=== PATIENT | female | born 1970 | race Caucasian/White ===

== ENCOUNTER 2020-07-11 10:53 | Outpatient (CLI) | payer OTHER ==
--- NOTE | 2020-07-11 11:23 | RAD ---
LUMBAR SPINE 2 VIEWS: HISTORY: Low back pain. FINDINGS: Grade I anterolisthesis on L4 and L5 with some generalized facet arthrosis. Calcific focus possibly representing a right renal calculus. No significant malalignment. Minimal vertical height loss of T 11. IMPRESSION: Minimal vertical height loss of T11. Grade I anterolisthesis of L4 and L5. Possible right renal ruben culus. POS: [facility]
== END 2020-07-11 10:54 | disposition home or self-care (01) ==
LOC: BICRAD 10:53
PROVIDERS: ATTEND Physician Assistant
DX: M54.5 Low back pain (principal); M43.16 Spondylolisthesis, lumbar region
CPT/HCPCS: 72100

== ENCOUNTER 2020-07-27 09:02 | Outpatient (CLI) | payer OTHER ==
--- NOTE | 2020-07-27 11:23 | MRI ---
MRI OF THE LUMBAR SPINE WITHOUT CONTRAST: Date: 07/27/2020 COMPARISON: None. HISTORY: Chronic low back pain. TECHNIQUE: Multiplanar, multisequence MR imaging of the lumbar spine obtained without contrast. FINDINGS: The sagittal STIR imaging demonstrates no focal area of osseous marrow edema. On the basis of five elsie mbar-type vertebral bodies, the conus medullaris terminates at the T12-L1 level. T11-12: There is disc space narrowing and partial disc desiccation with anterior osteophyte formatio n. No associated central canal or neural foraminal stenosis. T12-L1: Mild bilateral facet hypertrophy. Intervertebral disc height and signal intensity within nor mal limits with no central canal or neural foraminal stenosis. L1-2: Mild bilateral facet hypertrophy with no significant central canal or neural foraminal stenosi s. L2-3: Intervertebral disc height and signal intensity within normal limits with no significant centr al canal or neural foraminal stenosis. L3-4: Bilateral facet hypertrophy. No significant central canal or neural foraminal stenosis. Interv ertebral disc height and signal intensity within normal limits. L4-5: There is disc space narrowing and disc desiccation. There is mild anterolisthesis measuring in the 4.0 mm range. There is prominent bilateral facet hypertrophy. Fluid is seen within the left face t joint. No significant central canal stenosis is noted. There is mild left-sided neural foraminal st enosis. L5-S1: Mild bilateral facet hypertrophy. Intervertebral disc height and signal intensity grossly unr emarkable with no significant central canal or neural foraminal stenosis. There is a small T2 hyperintense lesion within the left hemipelvis suggesting a small left ovarian cy st measuring in the 2.1 cm range. Follow-up pelvic ultrasound may be beneficial for full assessment. Imaged retroperitoneal structures demonstrate no acute findings. There is an incidentally noted 6.0 mm T1 and T2 hypointense focus posterior to the psoas muscle on th e left at the axial level of the L5 vertebral body within the adjacent fat. IMPRESSION: 1. Lumbar spine degenerative change as detailed above, most prominently involving the facet joints b ilaterally at the L4-5 level. 2. Findings suggesting a 2.1 cm cystic lesion within the left ovary. Pelvic ultrasound may be benefi cial for full characterization. CODE T. POS: [facility]
== END 2020-07-27 09:03 | disposition home or self-care (01) ==
LOC: BICMRI 09:02
PROVIDERS: ATTEND Physician Assistant
DX: M43.10 Spondylolisthesis, site unspecified (principal); M54.5 Low back pain; M47.816 Spondylosis without myelopathy or radiculopathy, lumbar region
CPT/HCPCS: 72148

== ENCOUNTER 2020-09-13 09:03 | Outpatient (CLI) | payer OTHER ==
--- NOTE | 2020-09-13 10:04 | ULT ---
Pelvic sonogram transabdominal imaging with duplex evaluation HISTORY: Ovarian cyst. Abnormal MRI. FINDINGS: Urinary bladder is unremarkable. Uterus is surgically absent. No free fluid in the pelvis. Right ovary is 2.4 cm length. Normal appearance with good color and spectral Doppler flow. Left ovary measures up to 4.5 cm. Cystic lesion, correlating with MRI finding, has a appearance of a dominant follicle measuring up to 2.3 cm x 1.5 cm greatest diameters. No solid component. Good color and spectral Doppler flow associated with the ovary. IMPRESSION : Dominant follicle left ovary 2.3 cm. No solid mass or otherwise aggressive process evident.
== END 2020-09-13 09:04 | disposition home or self-care (01) ==
LOC: BICULT 09:03
PROVIDERS: ATTEND Physician Assistant
DX: N83.202 Unspecified ovarian cyst, left side (principal)
CPT/HCPCS: 76856; 93976

== ENCOUNTER 2020-09-26 09:19 | Outpatient (CLI) | payer OTHER | END 2020-09-26 09:20 | disposition home or self-care (01) | LOC: BICMAMMO 09:19 | PROVIDERS: ATTEND Physician Assistant | DX: Z12.31 Encounter for screening mammogram for malignant neoplasm of breast (principal); Z91.89 Other specified personal risk factors, not elsewhere classified | CPT/HCPCS: 77063; 77067 ==

== ENCOUNTER 2020-12-14 07:59 | Outpatient (CLI) | payer OTHER | END 2020-12-14 08:00 | disposition home or self-care (01) | LOC: BICULT 07:59 | PROVIDERS: ATTEND Family Medicine | DX: N83.202 Unspecified ovarian cyst, left side (principal); Z90.710 Acquired absence of both cervix and uterus | CPT/HCPCS: 76856; 93976 ==

== ENCOUNTER 2021-06-23 21:52 | Inpatient (IN) | payer OTHER, SELFPAY ==
[~2021-06-23 21:52] MED LIST: Amiodarone 150 MG/3 ML VIAL ONE
[2021-06-23] MEDS ORDERED: Adenosine 6 MG/2 ML VIAL ONE ×5 (22:02→22:23)
[2021-06-23 22:56] LABS: #Basophils 0.1 thou/uL (0.0-0.2); #Eosinphils 0.1 thou/uL (0.0-0.7); #Lymphocytes 3.3 thou/uL (1.20-3.40); #Monocytes 1.2 thou/uL (0.11-0.59); #Neutrophils 6.5 thou/uL (1.40-6.50); %Basophils 0.5 % (0.0-1.0); %Eosinophils 0.5 % (0.0-10.0); %Lymphocytes 29.9 % (21.0-51.0); %Monocytes 11.1 % (0.0-10.0); Hemoglobin 14.6 g/dL (12.0-16.0); Mean Corpuscular HGB CONC 35.3 g/dL (32.0-36.0); Mean Corpuscular Hemoglobin 32.1 pg (27.0-31.0); Mean Corpuscular Volume 90.9 fL (78.0-98.0); Mean Platelet Volume 7.2 fL (7.4-10.4); Platelet Count 351 thou/uL (130-400); Red Blood Cell (RBC) Count 4.54 mill/uL (4.20-5.40); White Blood Cell (WBC) Count 11.2 thou/uL (4.8-10.8)
[2021-06-23 23:15] LABS: ALT (SGPT) 55 U/L (8-55); AST (SGOT) 37 U/L (5-34); Alkaline Phosphatase 98 U/L (40-110); Anion Gap 16 mmol/L (10-20); BUN (Urea Nitrogen) 14 mg/dL (7.0-18.7); Bilirubin, Total 0.4 mg/dL (0.2-1.2); Calc. Creatinine Clearance 0 mL/min (70-130); Carbon Dioxide 21 mmol/L (22-29); Chloride 106 mmol/L (98-107); Globulin 2.7 g/dL (2.4-3.5); Glucose 105 mg/dL (70-105); Protein, Total 6.7 g/dL (6.0-8.3); Sodium 140 mmol/L (136-145)
[2021-06-23 23:16] LABS: Acetaminophen Less than 6.0 mcg/mL (10.0-30.0); Alcohol Less than 10 mg/dL (Less than 10); Salicylate Less than 8.0 mg/dL (15.0-30.0)
[2021-06-23 23:21] LABS: Potassium 2.8 mmol/L (3.5-5.1)
[2021-06-23 23:28] LABS: Amphetamine Detected (NotDetected); Barbiturates Screen Not Detected (NotDetected); Benzodiazepine Screen Not Detected (NotDetected); Cocaine Metabolite Screen Not Detected (NotDetected); Methadone Not Detected (NotDetected); Methamphetamine Not Detected (NotDetected); Opiate Screen Not Detected (NotDetected); Oxycodone Screen Not Detected (NotDetected); Phencyclidine (PCP) Not Detected (NotDetected); THC/Cannabinoid Screen Not Detected (NotDetected); Tricyclic Screen Not Detected (NotDetected)
[2021-06-23] MEDS ORDERED: Potassium Chloride 20 MEQ TAB ONE (23:41)
[2021-06-23 23:44] LABS: CKMB 3.9 ng/mL (0-6.6)
[2021-06-23] MEDS ORDERED: Aspirin Chewable 81 MG TAB ONE (23:49)
[2021-06-24 00:01] LABS: SARS-CoV-2 NAA Rapid Test Not Detected (NotDetected)
[2021-06-24 00:12] LABS: Bilirubin Negative (Negative); Blood, Urine Negative (Negative); Clarity Clear (Clear); Glucose, Urine (Dipstick) Normal (Negative); Ketone, Urine Trace mg/dL (Negative); Leukocyte Negative Leu/uL (Negative); Nitrite Negative (Negative); Protein, Urine (Dipstick) Negative (Neg-Trace); Specific Gravity, Urine 1.008 (1.002-1.036); Urobilinogen Normal mg/dL (Less than 2); pH, Urine 5.5 (5.0-9.0)
[2021-06-24] MEDS ORDERED: Ondansetron PF 4 MG/2 ML Vial IVP PRN (00:47)
[2021-06-24] MEDS ORDERED: Ondansetron ODT 4 MG TAB PO PRN (00:47)
[2021-06-24] MEDS ORDERED: Acetaminophen 650 MG Suppository PR PRN (00:47)
[2021-06-24 01:19] VITALS: BMI 32.4
[2021-06-24 02:28] LABS: Magnesium 1.8 mg/dL (1.6-2.6)
[2021-06-24 02:29] LABS: ALT (SGPT) 54 U/L (8-55); AST (SGOT) 38 U/L (5-34); Albumin 3.7 g/dL (3.5-5.0); Alkaline Phosphatase 88 U/L (40-110); Bilirubin, Direct 0.2 mg/dL (0.1-0.3); Bilirubin, Total 0.3 mg/dL (0.2-1.2); Protein, Total 6.9 g/dL (6.0-8.3)
[2021-06-24] MEDS ORDERED: Famotidine 20 MG TAB PO SCH ×2 (02:30→09:00)
[2021-06-24 03:43] LABS: Troponin I 0.743 ng/mL (< 0.028)
[2021-06-24 05:00] LABS: #Eosinphils 0.1 thou/uL (0.0-0.7); #Lymphocytes 3.2 thou/uL (1.20-3.40); #Monocytes 1.1 thou/uL (0.11-0.59); %Basophils 0.4 % (0.0-1.0); %Eosinophils 0.9 % (0.0-10.0); %Lymphocytes 34.2 % (21.0-51.0); %Monocytes 11.6 % (0.0-10.0); %Neutrophils 52.9 % (42.0-75.0); Hemoglobin 13.9 g/dL (12.0-16.0); Mean Corpuscular HGB CONC 33.4 g/dL (32.0-36.0); Mean Corpuscular Hemoglobin 30.8 pg (27.0-31.0); Mean Platelet Volume 7.1 fL (7.4-10.4); Platelet Count 314 thou/uL (130-400); RBC Distribution Width 12.1 % (11.5-14.5); Red Blood Cell (RBC) Count 4.53 mill/uL (4.20-5.40); White Blood Cell (WBC) Count 9.4 thou/uL (4.8-10.8)
[2021-06-24 05:10] LABS: Anion Gap 12 mmol/L (10-20); BUN (Urea Nitrogen) 12 mg/dL (7.0-18.7); Calc. Creatinine Clearance 118 mL/min (70-130); Calcium 8.8 mg/dL (7.8-10.44); Carbon Dioxide 23 mmol/L (22-29); Chloride 107 mmol/L (98-107); Glucose 102 mg/dL (70-105); Magnesium 1.8 mg/dL (1.6-2.6); Sodium 139 mmol/L (136-145)
[2021-06-24 05:23] LABS: Potassium 2.9 mmol/L (3.5-5.1); Troponin I 0.833 ng/mL (< 0.028)
[2021-06-24] MEDS ORDERED: Magnesium Sulfate 2 GM in Sodium Chloride 0.9% 100 ML IVPB SCH (05:30)
[2021-06-24] MEDS ORDERED: Electrolyte Replacement Protocol 1 EACH FS PRN (05:30)
[2021-06-24 05:32] LABS: Hemoglobin A1c 4.6 % (4.0-6.0)
[2021-06-24] MEDS ORDERED: Magnesium 2 GM/50 ML 2 GM in Premix Bag 1 BAG IVPB SCH (06:00)
[2021-06-24] MEDS: Potassium Chloride 20 MEQ TAB PO SCH ×2 (06:05→08:29)
[2021-06-24] MEDS: Enoxaparin Sodium 40 MG/0.4 ML SYRINGE SC SCH ×2 (08:29→12:47)
[2021-06-24] MEDS: Hydrochlorothiazide 25 MG TAB PO SCH ×3 (08:30→12:49)
[2021-06-24 10:33] LABS: Anion Gap 11 mmol/L (10-20); BUN (Urea Nitrogen) 11 mg/dL (7.0-18.7); Calc. Creatinine Clearance 121 mL/min (70-130); Calcium 8.5 mg/dL (7.8-10.44); Carbon Dioxide 22 mmol/L (22-29); Chloride 108 mmol/L (98-107); Glucose 93 mg/dL (70-105); Potassium 3.4 mmol/L (3.5-5.1); Sodium 138 mmol/L (136-145)
[2021-06-24] MEDS: Acetaminophen 325 MG TAB PO PRN (12:50)
[2021-06-25] MEDS: Acetaminophen 325 MG TAB PO PRN (09:41)
[2021-06-25] MEDS: Hydrochlorothiazide 25 MG TAB PO SCH (10:51)
[2021-06-25] MEDS: Enoxaparin Sodium 40 MG/0.4 ML SYRINGE SC SCH (14:27)
[2021-06-25 22:59] LABS: Anion Gap 13 mmol/L (10-20); BUN (Urea Nitrogen) 10 mg/dL (7.0-18.7); Calc. Creatinine Clearance 115 mL/min (70-130); Calcium 8.8 mg/dL (7.8-10.44); Carbon Dioxide 20 mmol/L (22-29); Chloride 109 mmol/L (98-107); Glucose 80 mg/dL (70-105); Magnesium 1.9 mg/dL (1.6-2.6); Potassium 3.6 mmol/L (3.5-5.1); Sodium 138 mmol/L (136-145)
[2021-06-26] MEDS: Hydrochlorothiazide 25 MG TAB PO SCH (08:36)
[2021-06-26] MEDS: Enoxaparin Sodium 40 MG/0.4 ML SYRINGE SC SCH (08:37)
[2021-06-27] MEDS: Hydrochlorothiazide 25 MG TAB PO SCH (09:00)
[2021-06-27] MEDS: Enoxaparin Sodium 40 MG/0.4 ML SYRINGE SC SCH (09:00)
[2021-06-27] MEDS ORDERED: Propofol 1,000 MG/100 ML VIAL IV ONE (10:33)
[2021-06-27] MEDS ORDERED: Heparin 10,000 UNITS/ 10 ML VIAL ONE (10:48)
[2021-06-27] MEDS ORDERED: Heparin 25,000 units/D5W 0 ML ONE (10:48)
[2021-06-27] MEDS ORDERED: Scopolamine 1.5 mg/72 hour Patch ONE (12:36)
[2021-06-27] MEDS ORDERED: Fentanyl 100 MCG/2 ML VIAL ONE (12:53)
[2021-06-27] MEDS ORDERED: Isoproterenol 0.2 MG/1 ML AMP ONE (12:56)
[2021-06-27] MEDS ORDERED: Lidocaine 1% PF 5 ML VIAL ONE (13:15)
[2021-06-27] MEDS ORDERED: Propofol 500 MG/50 ML VIAL ONE (13:54)
[2021-06-27] MEDS: Acetaminophen 325 MG TAB PO PRN (16:10)
[2021-06-27 16:19] VITALS: BP 128/59; TEMP 98.5
== END 2021-06-27 18:53 | disposition home or self-care (01) | DRG 273 ==
LOC: ERS 21:52 → 2SW 23:55
PROVIDERS: ADMIT Student in an Organized Health Care Education/Training Program; ATTEND Internal Medicine
PROC: 02583ZZ Destruction of Conduction Mechanism, Percutaneous Approach (ICD-10-PCS; principal; 2021-06-27)
PROC: 02K83ZZ Map Conduction Mechanism, Percutaneous Approach (ICD-10-PCS; 2021-06-27)
PROC: 4A023FZ Measurement of Cardiac Rhythm, Percutaneous Approach (ICD-10-PCS; 2021-06-27)
PROC: 4A0234Z Measurement of Cardiac Electrical Activity, Percutaneous Approach (ICD-10-PCS; 2021-06-27)
DX: I47.1 Supraventricular tachycardia (principal); I21.A1 Myocardial infarction type 2; R68.0 Hypothermia, not associated with low environmental temperature; Z20.822 Contact with and (suspected) exposure to COVID-19; E87.6 Hypokalemia; I10 Essential (primary) hypertension; D72.829 Elevated white blood cell count, unspecified; K21.9 Gastro-esophageal reflux disease without esophagitis; E66.01 Morbid (severe) obesity due to excess calories; Z79.899 Other long term (current) drug therapy; Z90.49 Acquired absence of other specified parts of digestive tract; Z90.710 Acquired absence of both cervix and uterus; Z68.32 Body mass index [BMI] 32.0-32.9, adult
CPT/HCPCS: 36415; 71045; 80048; 80053; 80076; 80306; 80307; 81003; 82553; 83036; 83735; 84443; 84484; 85025; 93005; 93010; 93017; 93306; 93613; 93621; 93623; C1730; C1732; C1776; J0153; J0282; J1644; J1650; J2704; J3010; J3475; U0002

== ENCOUNTER 2021-07-05 21:22 | Emergency (ER) | payer OTHER | END 2021-07-06 01:01 | disposition home or self-care (01) | LOC: ERS 21:22 | DX: R79.89 Other specified abnormal findings of blood chemistry (principal) | CPT/HCPCS: 71275; 93005; 93970 ==

== ENCOUNTER 2022-02-06 10:54 | Outpatient (CLI) | payer OTHER | END 2022-02-06 10:55 | disposition home or self-care (01) | LOC: BICMAMMO 10:54 | PROVIDERS: ATTEND Nurse Practitioner Family | DX: Z12.31 Encounter for screening mammogram for malignant neoplasm of breast (principal) | CPT/HCPCS: 77063; 77067 ==

== ENCOUNTER 2023-06-24 08:55 | Outpatient (CLI) | payer OTHER | END 2023-06-24 08:56 | disposition home or self-care (01) | LOC: BICMAMMO 08:55 | PROVIDERS: ATTEND Nurse Practitioner Family | DX: Z12.31 Encounter for screening mammogram for malignant neoplasm of breast (principal); Z80.3 Family history of malignant neoplasm of breast | CPT/HCPCS: 77063; 77067 ==